=== PATIENT | female | born 1940 | race African-American/Black ===

== ENCOUNTER 2016-10-12 09:22 | Emergency (ER) | payer MEDICARE, OTHER ==
[~2016-10-12] VITALS: Ht 167.6 cm; Wt 93.2 kg
[~2016-10-12 09:22] MED LIST: ACET500C4 PO; GABA-531 PO; NIFE20CA PO; VALS1TAB48 PO; [UNRECOGNIZED DRUG - CODE] PO
[2016-10-12] MEDS ORDERED: UNK HTN MED PO (09:44)
[2016-10-12] MEDS ORDERED: SIMV-260 PO (09:44)
[2016-10-12] MEDS ORDERED: KETOROLAC TROMETHAMINE 60 MG/2 ML VIAL IM ONE (11:00)
[2016-10-12 13:53] VITALS: BP 145/82
== END 2016-10-12 14:02 | disposition home or self-care (01) ==
LOC: EMS 09:24
DX: M19.012 Primary osteoarthritis, left shoulder (principal); I10 Essential (primary) hypertension; E78.00 Pure hypercholesterolemia, unspecified
CPT/HCPCS: 96372; 99283; J1885